=== PATIENT | male | born 1995 | race Caucasian/White ===

== ENCOUNTER 2019-04-19 19:37 | Emergency (ER) | payer OTHER, SELFPAY ==
[2019-04-19 19:37] VITALS: BP 146/69; PULSE 128; RESP 18; TEMP 38.3; O2SAT 100; BMI 29.4
--- NOTE | 2019-04-19 19:44 | RAD_ITS ---
STUDY: X-RAY CHEST REASON FOR EXAM: Male, 23 years old. Headache with fever TECHNIQUE: PA and lateral views of the chest. COMPARISON: None. FINDINGS: The lungs are clear and expanded. There is no demonstrated pleural abnormality. Normal size heart. Normal mediastinum and breana. Normal visualized pulmonary arteries. Normal visualized aortic arch and descending thoracic aorta. Normal visualized thoracic spine. Normal visualized ribs, clavicles, and shoulders. There is no demonstrated abnormality of the visualized soft tissue structures of the upper abdomen. RAD/Chest PA and Lateral IMPRESSION: Normal x-ray examination of the chest. Electronically Signed: Eldon Caba DO at 20:23 EDT Tel , Service support ,
--- NOTE | 2019-04-19 19:45 | ED.DCSUM_ITS ---
History of Present Illness Chief Complaint: Fever Informant: Patient Onset: Yesterday Context: Gradual Onset Timing: Continuous Current Severity: Moderate Maximum Severity: Moderate Narrative: Patient presents to the emergency department fever and cough. Symptoms began yesterday. He states that he was just feeling like he had some general malaise. He states shortly thereafter, he began develop a cough and had a fever. He admits to chills and myalgias. Patient is otherwise healthy. He states that his friend at work was recently diagnosed with pneumonia. He has no history of immunosuppression. He denies neck pain. He denies sore throat pain. He denies abdominal pain. Prior similar symptoms: No Recent Illness/Hospitalization: No Past Medical History - Allergies and Home Meds Allergies/Adverse Reactions: Allergies No Known Allergies Allergy (Verified 04/19/19 19:39) Primary Care Physician: NOT,DEFINED [NON-STAFF] - Prior records reviewed: Yes Past Medical History: None Surgical History: no surgical history Smoking Status: Never smoker Review of Systems General: Reports: Chills, Fever Eyes: Denies: Visual changes - bilaterally, Diplopia ENT: Denies: Rhinorrhea, Sore throat Cardiovascular: Denies: Chest pain, Palpitations Respiratory: Reports: Cough Gastrointestinal: Denies: Abdominal pain, Nausea, Vomiting, Diarrhea, Melena, Hematochezia Genitourinary: Denies: Dysuria, Hematuria, Frequency Musculoskeletal: Denies: Back pain, Extremity Pain Skin: Denies: Rash, Wounds Neurological: Denies: Headache, Weakness, Numbness Physical Exam Vital Signs/Narrative: Vital Signs Temp Pulse Resp BP Pulse Ox 04/19/19 19:37 100.9 F H 128 H 18 146/69 H 100 Inital Vital Signs reviewed: Yes General: Well nourished, Well developed, No Acute Distress Head: Normocephalic, Atraumatic Eyes: Perrl, EOMI ENT: Moist mucous membranes, No rhinorrhea Neck: Supple, Nontender Cardiovascular: Regular rate, Regular rhythm, No murmurs Respiratory: No distress, Chest nontender, Rales Abdomen: Soft, Nontender, Nondistended, Normal bowel sounds Back: Nontender, Normal Inspection Extremities: Nontender, No edema Skin: Normal color, No rash Neurological: Alert, Oriented x3, Cranial nerves II-XII grossly intact, Normal Strength, Normal Sensation Psychological: Normal affect, Normal Mood Diagnostic/Tx/Re-eval Chest X-Ray - ED: 2 View, Read by ED Physician, Normal, Heart, Mediastinum, Bony Structures, Right Infiltrate - Medical Decision Making The patient presents with fever, cough, shortness of breath. He does have some rales in the right lung base. His x-ray was read as negative, but does appear as if he has an early infiltrate in the right lower lobe. Given his symptoms, I do feel that the most prudent thing would be to treat him. His fever has broken . He is not hypoxic. I do feel that he is safe for outpatient therapy. His pneumonia severity index is very low. He is comfortable with this plan of care. He will be started on azithromycin. He was counseled on concerning symptoms and reasons to return. He will be discharged home. Impression 1. Community-acquired pneumonia of the right lower lobe ED Disposition - Plan for ED Patient: Instructions: PNEUMONIA (Adult) Prescriptions: Azithromycin [Zithromax] 250 mg PO DAILY #4 tab Prescription Printed Referrals: NOT,DEFINED [NON-STAFF] -
[2019-04-19] MEDS: Acetaminophen 500 MG Tablet 1000 MG PO (19:53)
[2019-04-19] MEDS: Azithromycin 250 MG Tablet 500 MG PO (20:44)
[2019-04-19 20:46] VITALS: BP 118/70; PULSE 109; RESP 18; O2SAT 99
== END 2019-04-19 20:48 | disposition home or self-care (01) ==
LOC: ED 19:54
PROVIDERS: Emergency Provider Emergency Medicine
DX: J18.9 Pneumonia, unspecified organism (principal)
CPT/HCPCS: 71046; 99283

== ENCOUNTER → 2020-04-13 | Outpatient (CLI) | payer BC, SELFPAY ==
[2020-04-10 16:43] VITALS: BMI 29.4
== END | disposition home or self-care (01) ==
LOC: MTDU 17:14
PROVIDERS: Referring Provider Physician Assistant Surgical; Visit Provider Physician Assistant Surgical
DX: U07.1 COVID-19 (principal)
CPT/HCPCS: 87635; 94799; U0003